=== PATIENT | female | born 1995 | race Caucasian/White ===

== ENCOUNTER 2025-03-25 01:14 | Emergency (ER) | payer OTHER | END 2025-03-25 02:00 | disposition home or self-care (01) | LOC: FB.ED 01:14 | DX: S39.012A Strain of muscle, fascia and tendon of lower back, initial encounter (principal); J06.9 Acute upper respiratory infection, unspecified; X58.XXXA Exposure to other specified factors, initial encounter | CPT/HCPCS: 99283; 99284; A9270-GY ==